=== PATIENT | female | born 1950 | race Caucasian/White ===

== ENCOUNTER 2020-07-22 09:01 | Outpatient (CLI) | payer MEDICARE, OTHER, SELFPAY ==
--- NOTE | 2020-07-22 09:14 | US_ITS ---
WS: [id number] RIGHT UPPER QUADRANT ULTRASOUND HISTORY: FOLLOW UP/POLYPS VS STONES COMPARISON: None available. Liver: 16.7 cm in length. Liver is very slightly enlarged. Mild coarsened echotexture from hepatic st eatosis. Gallbladder: Normally distended gallbladder. Focal area of soft tissue thickening along the gallbladd er wall. From this soft tissue thickening is a soft tissue extension into the lumen. The soft tissue extension measures 9 mm.Broad based wall thickening measures 7.6 mm. These 2 soft tissue nodules appe ar contiguous. There is no shadowing. No increased vascularity. CBD: 0.3 cm Pancreas: Normal size and echogenicity. Right kidney: 9.1 cm in length. Normal size and echogenicity. No hydronephrosis or mass. Aorta and IVC: Unremarkable abdominal aorta and IVC. No ascites. US/US gall bladder [id number] IMPRESSION: 1. Focal wall thickening with a soft tissue nodular extension into the lumen o f the gallbladder. There is no shadowing. Most consistent with an elongated delmy yp extending into the lumen of the gallbladder. Due to its broad-based attachme nt to the wall of the gallbladder consider cholecystectomy. No increased vascul arity. 2. No shadowing stones identified.
== END 2020-07-22 09:02 | disposition home or self-care (01) ==
LOC: RAD 09:10
PROVIDERS: PCP Family Medicine; Visit Provider Surgery
DX: K82.4 Cholesterolosis of gallbladder (principal)
CPT/HCPCS: 76705

== ENCOUNTER 2021-04-13 10:44 | Outpatient (CLI) | payer MEDICARE, OTHER, SELFPAY ==
--- NOTE | 2021-04-13 11:01 | US_ITS ---
WS: [id number] RIGHT UPPER QUADRANT ULTRASOUND HISTORY: GALLBLADDER POLYP/FOLLOW UP POLYP SIZE COMPARISON: 07/22/2020 Liver: 13.8 cm in length. Normal size liver. No bile duct dilatation or mass. Portal Vein: Normal hepatopetal flow with monophasic waveform. Gallbladder: Abnormal appearance of the gallbladder. There continues to be wall thickening and a soft tissue mass extending into the lumen of the gallbladder. There is a broad-based attachment along the gallbladder wall with a focal nodular extrusion into the lumen. Soft tissue thickening involving the neck of the gallbladder is slightly lobulated. The largest nodule component with a broad-based attac hment measures 1.2 x 0.7 x 0.9 cm. There has been a mild increase in size of the soft tissue componen t. CBD: 0.3 cm Pancreas: Normal size and echogenicity. Right kidney: 9.2 cm in length. Normal size and echogenicity. No hydronephrosis or mass. Aorta and IVC: Unremarkable abdominal aorta and IVC. No ascites. US/US gall bladder [id number] IMPRESSION: 1. There has been a slight increase in the soft tissue components within the l umen of the gallbladder. Broad-based attachment to the wall of the gallbladder within soft tissue nodular component extending into the lumen. There is soft ti ssue thickening extending into the neck of the gallbladder. Although there has been only a slight increase in the soft tissue component since 07/22/2020 surgic al removal should be considered. 2. No bile duct dilatation.
== END 2021-04-13 10:45 | disposition home or self-care (01) ==
LOC: RAD 10:47
PROVIDERS: PCP Family Medicine; Visit Provider Surgery
DX: K82.4 Cholesterolosis of gallbladder (principal)
CPT/HCPCS: 76705

== ENCOUNTER 2022-04-11 06:00 | Outpatient (RCR) | payer MEDICARE, OTHER, SELFPAY | END 2022-05-11 23:59 | disposition home or self-care (01) | LOC: APT 06:00 | PROVIDERS: PCP Family Medicine; Visit Provider Orthopaedic Surgery | DX: Z47.1 Aftercare following joint replacement surgery (principal); Z96.659 Presence of unspecified artificial knee joint | CPT/HCPCS: 97110; 97112; 97116; 97161 ==

== ENCOUNTER 2022-05-12 06:00 | Outpatient (RCR) | payer MEDICARE, OTHER, SELFPAY | END 2022-06-08 23:59 | disposition home or self-care (01) | LOC: APT 06:00 | PROVIDERS: PCP Family Medicine; Visit Provider Orthopaedic Surgery | DX: Z47.1 Aftercare following joint replacement surgery (principal); Z96.652 Presence of left artificial knee joint | CPT/HCPCS: 97110; 97112; 97116; 97140; 97530 ==

== ENCOUNTER 2022-06-09 06:00 | Outpatient (RCR) | payer MEDICARE, OTHER, SELFPAY | END 2022-07-09 23:59 | disposition home or self-care (01) | LOC: APT 06:00 | PROVIDERS: PCP Family Medicine; Visit Provider Orthopaedic Surgery | DX: Z47.1 Aftercare following joint replacement surgery (principal); Z96.652 Presence of left artificial knee joint | CPT/HCPCS: 97110; 97112; 97140; 97530 ==

== ENCOUNTER → 2024-03-07 14:07 | Outpatient (BNVA) | payer MEDICARE, OTHER, SELFPAY | PROVIDERS: PCP Family Medicine; Visit Provider Podiatrist Foot & Ankle Surgery | DX: M24.572 Contracture, left ankle; M77.51 Other enthesopathy of right foot and ankle; M77.52 Other enthesopathy of left foot and ankle; Q66.221 Congenital metatarsus adductus, right foot; Q66.222 Congenital metatarsus adductus, left foot | CPT/HCPCS: 73630; 99203 ==

== ENCOUNTER 2024-04-12 11:36 | Outpatient (CLI) | payer MEDICARE, OTHER, SELFPAY | END 2024-04-12 11:37 | disposition home or self-care (01) | LOC: SPT 11:36 | PROVIDERS: PCP Family Medicine; Visit Provider Podiatrist Foot & Ankle Surgery | DX: Z46.89 Encounter for fitting and adjustment of other specified devices (principal); M76.829 Posterior tibial tendinitis, unspecified leg; M19.90 Unspecified osteoarthritis, unspecified site | CPT/HCPCS: L3030 ==

== ENCOUNTER → 2024-06-06 14:34 | Outpatient (BNVA) | payer MEDICARE, OTHER, SELFPAY | PROVIDERS: PCP Family Medicine; Visit Provider Podiatrist Foot & Ankle Surgery | DX: M24.572 Contracture, left ankle (principal); M19.071 Primary osteoarthritis, right ankle and foot; M77.52 Other enthesopathy of left foot and ankle | CPT/HCPCS: 99213 ==